=== PATIENT | male | born 1990 | race African-American/Black ===

== ENCOUNTER 2016-06-27 23:06 | Emergency (ER) | payer OTHER ==
[2016-06-28] MEDS ORDERED: PANTOPRAZOLE IV PUSH 40 MG VIAL. IVP ONE (00:55)
[2016-06-28] MEDS ORDERED: FENTANYL PF 100 MCG/2 ML VIAL. IV ONE (00:55)
[2016-06-28 01:02] LABS: BASO % 1 % (0-3); EOS % 3 % (0-3); HEMATOCRIT 44.3 % (39.0-53.0); HEMOGLOBIN 14.4 g/dL (13.0-17.5); LYMPH # 3.3 x10^3/uL (1.0-4.8); LYMPH % 55 % (24-48); MEAN CORPUSCULAR HEMOGLOBIN 26 pg (25-35); MEAN CORPUSCULAR HGB CONC 33 g/dL (31-37); MEAN CORPUSCULAR VOLUME 80 fL (79-100); MONO % 6 % (0-9); NEUT % 36 % (31-73); PLATELET COUNT 193 x10^3/uL (140-400); RED CELL DISTRIBUTION WIDTH 14.6 % (11.5-14.5)
[2016-06-28 01:15] LABS: GFR 110.2; POTASSIUM 3.6 mmol/L (3.5-5.1)
[2016-06-28 01:18] LABS: ALBUMIN 3.9 g/dL (3.4-5.0); ALBUMIN/GLOBULIN RATIO 1.1 (1.0-1.7); TOTAL PROTEIN 7.3 g/dL (6.4-8.2)
[2016-06-28] MEDS ORDERED: PANT20TA2 PO (01:38)
--- NOTE | 2016-06-28 01:38 | PHYS DOC ---
Past Medical History Past Medical History: No Pertinent History Past Surgical History: No Surgical History Alcohol Use: Occasionally Drug Use: Marijuana Adult General Chief Complaint Chief Complaint: ABDOMINAL PAIN [facility] HPI 25-year-old male who presents with exquisite epigastric and left upper quadrant pain for the last several days. He denies any blood in his stool. He states he has mild nausea but no vomiting. He denies any recent drugs or alcohol use. He states he does have history of acid reflux but is not taking any medications. He is no distress upon my evaluation. He denies any history of abdominal surgery. Review of Systems Review of Systems Constitutional: Denies fever or chills [] Eyes: Denies change in visual acuity, redness, or eye pain [] HENT: Denies nasal congestion or sore throat [] Respiratory: Denies cough or shortness of breath [] Cardiovascular: No additional information not addressed in HPI [] GI: Has abdominal pain, has nausea, denies vomiting, denies bloody stools or diarrhea [] : Denies dysuria or hematuria [] Musculoskeletal: Denies back pain or joint pain [] Integument: Denies rash or skin lesions [] Neurologic: Denies headache, focal weakness or sensory changes [] Endocrine: Denies polyuria or polydipsia [] Current Medications Current Medications Current Medications Medications (Trade) Dose Ordered Sig/[facility] Start Time Stop Time Status Last Admin Dose Admin Fentanyl Citrate (Fentanyl 2ml Vial) 50 mcg 1X ONCE 06/28/16 00:55 06/28/16 00:56 DC 06/28/16 01:11 50 MCG Pantoprazole Sodium (Protonix Vial) 40 mg 1X ONCE 06/28/16 00:55 06/28/16 00:56 DC 06/28/16 01:10 40 MG Allergies Allergies Allergies Coded Allergies Type Severity Reaction Last Updated Verified No Known Drug Allergies 06/27/16 No Physical Exam Physical Exam Constitutional: Well developed, well nourished, no acute distress, non-toxic appearance. [] HENT: Normocephalic, atraumatic, bilateral external ears normal, oropharynx moist, no oral exudates, nose normal. [] Eyes: PERRLA, EOMI, conjunctiva normal, no discharge. [] Neck: Normal range of motion, no tenderness, supple, no stridor. [] Cardiovascular:Heart rate regular rhythm, no murmur [] Lungs & Thorax: Bilateral breath sounds clear to auscultation [] Abdomen: Bowel sounds normal, soft, mild epigastric tenderness, no masses, no pulsatile masses. [] Skin: Warm, dry, no erythema, no rash. [] Back: No tenderness, no CVA tenderness. [] Extremities: No tenderness, no cyanosis, no clubbing, ROM intact, no edema. [] Neurologic: Alert and oriented X 3, normal motor function, normal sensory function, no focal deficits noted. [] Psychologic: Affect normal, judgement normal, mood normal. [] Current Patient Data Vital Signs Vital Signs Date Time Temp Pulse Resp B/P Pulse Ox O2 Delivery O2 Flow Rate FiO2 06/28/16 01:42 67 122/71 97 Room Air 06/28/16 01:11 16 06/27/16 23:45 98.1 98.1 Lab Values Laboratory Tests Test 06/28/16 00:15 White Blood Count 6.0x10^3/uL (4.0-11.0) Red Blood Count 5.50x10^6/uL (4.30-5.70) Hemoglobin 14.4g/dL (13.0-17.5) Hematocrit 44.3% (39.0-53.0) Mean Corpuscular Volume 80fL (79-100) Mean Corpuscular Hemoglobin 26pg (25-35) Mean Corpuscular Hemoglobin Concent 33g/dL (31-37) Red Cell Distribution Width 14.6% (11.5-14.5) H Platelet Count 193x10^3/uL (140-400) Neutrophils (%) (Auto) 36% (31-73) Lymphocytes (%) (Auto) 55% (24-48) H Monocytes (%) (Auto) 6% (0-9) Eosinophils (%) (Auto) 3% (0-3) Basophils (%) (Auto) 1% (0-3) Neutrophils # (Auto) 2.1x10^3uL (1.8-7.7) Lymphocytes # (Auto) 3.3x10^3/uL (1.0-4.8) Monocytes # (Auto) 0.4x10^3/uL (0.0-1.1) Eosinophils # (Auto) 0.2x10^3/uL (0.0-0.7) Basophils # (Auto) 0.0x10^3/uL (0.0-0.2) Sodium Level 140mmol/L (136-145) Potassium Level 3.6mmol/L (3.5-5.1) Chloride Level 104mmol/L (98-107) Carbon Dioxide Level 27mmol/L (21-32) Anion Gap 9 (6-14) Blood Urea Nitrogen 15mg/dL (8-26) Creatinine 1.0mg/dL (0.7-1.3) Estimated GFR (Cockcroft-Gault) 110.2 BUN/Creatinine Ratio 15 (6-20) Glucose Level 122mg/dL (70-99) H Calcium Level 9.0mg/dL (8.5-10.1) Total Bilirubin 1.0mg/dL (0.2-1.0) Aspartate Amino Transferase (AST) 22U/L (15-37) Alanine Aminotransferase (ALT) 48U/L (16-63) Alkaline Phosphatase 62U/L (46-116) Total Protein 7.3g/dL (6.4-8.2) Albumin 3.9g/dL (3.4-5.0) Albumin/Globulin Ratio 1.1 (1.0-1.7) Lipase 103U/L (73-393) Laboratory Tests 06/28/16 00:15 Laboratory Tests 06/28/16 00:15 EKG EKG [] Radiology/Procedures Radiology/Procedures [] Course & Med Decision Making Course & Med Decision Making Pertinent Labs and Imaging studies reviewed. (See chart for details) This 25-year-old male was given a dose protonic's and had a laboratory workup that was unremarkable. Symptoms are likely related to ongoing gastritis first ulceration and I counseled him that he is to follow closely. I will be putting him on a PPI course for 10 days and he will follow closely with his primary care doctor for endoscopy if his symptoms do not improve. Dragon Disclaimer Dragon Disclaimer This electronic medical record was generated, in whole or in part, using a voice recognition dictation system. Departure Departure Impression: Primary Impression: Epigastric abdominal pain Disposition: HOME, SELF-CARE Admitting Physician: Other Condition: STABLE Referrals: NO PCP (PCP) Patient Instructions: Abdominal Pain Additional Instructions: Please follow up with your primary doctor or GI doctor regarding your recent abdominal pain and be assessed for possible endoscopy. Return to the ER if you develop any worsening of your symptoms. Scripts Pantoprazole Sodium (Protonix)20 Mg Tablet.dr1 Tab PO DAILY #10 TAB Prov:TATUM WALKER DO 06/28/16 TATUM WALKER DO Jun 28, 2016 01:38
[2016-06-28 01:42] VITALS: BP 122/71
== END 2016-06-28 01:48 | disposition home or self-care (01) ==
LOC: ER 23:06
DX: R10.13 Epigastric pain (principal); R10.12 Left upper quadrant pain; K21.9 Gastro-esophageal reflux disease without esophagitis; F12.10 Cannabis abuse, uncomplicated
CPT/HCPCS: 36415; 80053; 83690; 85027; 96374; 96375; 99284; C9113; J3010

== ENCOUNTER 2017-01-21 07:52 | Emergency (ER) | payer SELFPAY ==
[~2017-01-21] VITALS: Ht 185.4 cm; Wt 90.3 kg
[~2017-01-21 07:52] MED LIST: PANT20TA2 PO
[2017-01-21 08:02] VITALS: BP 142/78
[2017-01-21] MEDS ORDERED: NAPR500T8 PO (08:18)
[2017-01-21] MEDS ORDERED: METH4TAB2 PO (08:18)
[2017-01-21] MEDS ORDERED: CYCL10TA2 PO (08:18)
--- NOTE | 2017-01-21 08:18 | PHYS DOC ---
Past Medical History Past Medical History: No Pertinent History Past Surgical History: No Surgical History Alcohol Use: Occasionally Drug Use: None, Marijuana Adult General Chief Complaint Chief Complaint: BACK PAIN OR INJURY HPI HPI Patient is a 26 year old male with no significant medical history who presents today with a sharp 8 out of 10 needed low back pain that began one and a half weeks ago. Patient is attributing his pain to lifting heavy boxes at work. Patient denies any injury. Denies the pain radiating to bilateral lower extremities. Denies any loss of bowel bladder function. He states his pain is worse when he is at work lifting boxes. Patient denies any urinary symptoms. Review of Systems Review of Systems Constitutional: Denies fever or chills [] Eyes: Denies change in visual acuity, redness, or eye pain [] HENT: Denies nasal congestion or sore throat [] Respiratory: Denies cough or shortness of breath [] Cardiovascular: No additional information not addressed in HPI [] GI: Denies abdominal pain, nausea, vomiting, bloody stools or diarrhea [] : Denies dysuria or hematuria [] Musculoskeletal: Low back pain, mid back pain Integument: Denies rash or skin lesions [] Neurologic: Denies headache, focal weakness or sensory changes [] Allergies Allergies Allergies Coded Allergies Type Severity Reaction Last Updated Verified No Known Drug Allergies 06/27/16 No Physical Exam Physical Exam Constitutional: Well developed, well nourished, no acute distress, non-toxic appearance. [] HENT: Normocephalic, atraumatic, bilateral external ears normal, oropharynx moist, no oral exudates, nose normal. [] Eyes: PERRLA, EOMI, conjunctiva normal, no discharge. [] Neck: Normal range of motion, no tenderness, supple, no stridor. [] Cardiovascular:Heart rate regular rhythm, no murmur [] Lungs & Thorax: Bilateral breath sounds clear to auscultation [] Abdomen: Bowel sounds normal, soft, no tenderness, no masses, no pulsatile masses. [] Skin: Warm, dry, no erythema, no rash. [] Back: No tenderness, no CVA tenderness. [] Extremities: Diffuse paraspinal muscle tenderness to thoracic and lumbar spine, no midline thoracic and lumbar spine tenderness, no cyanosis, no clubbing, ROM intact, no edema. [] Neurologic: Alert and oriented X 3, normal motor function, normal sensory function, no focal deficits noted. [] Psychologic: Affect normal, judgement normal, mood normal. [] Current Patient Data Vital Signs Vital Signs Date Time Temp Pulse Resp B/P (MAP) Pulse Ox O2 Delivery O2 Flow Rate FiO2 01/21/17 08:02 98.5 69 16 97 Room Air 98.5 EKG EKG [] Radiology/Procedures Radiology/Procedures [] Course & Med Decision Making Course & Med Decision Making Pertinent Labs and Imaging studies reviewed. (See chart for details) This is a 26-year-old male patient presented to the ED today with thoracic and lumbar back pain consistent with muscle strain from lifting heavy boxes. Patient discharged with Medrol Dosepak, naproxen and Flexeril. Encouraged not to lift anything heavier than 30 pounds for the next 1 week. Heat recommended to his back. Follow-up with the PCP in 1-2 weeks. Dragon Disclaimer Dragon Disclaimer This electronic medical record was generated, in whole or in part, using a voice recognition dictation system. Departure Departure Impression: Primary Impression: Acute thoracic myofascial strain Additional Impression: Acute lumbosacral myofascial strain Disposition: HOME, SELF-CARE Condition: STABLE Referrals: NO PCP (PCP) Follow-up with the primary care doctor in one week Patient Instructions: Lumbosacral Strain, Thoracic Strain, [id number] Additional Instructions: You were seen for thoracic and lumbar muscle strain. Avoid lifting anything heavier than 30 pounds for one week. You can get a heating pad and apply to the affected areas. Establish care with a primary care doctor and follow-up in the next 7 days. Scripts Cyclobenzaprine Hcl (CYCLOBENZAPRINE HCL) 10 Mg Tablet 1 TAB PO TID, #30 TAB Prov: DEVON TORRES POLITICAL REPORTER 01/21/17 Naproxen (NAPROXEN) 500 Mg Tablet.dr 1 TAB PO BID, #60 TAB 0 Refills Prov: MUTUNGADEVON POLITICAL REPORTER 01/21/17 Methylprednisolone (MEDROL) 4 Mg Tab.ds.pk 1 PKG PO UD, #1 PKG Prov: MUTUNGADEVON POLITICAL REPORTER 01/21/17 Problem Qualifiers Primary Impression: Acute thoracic myofascial strain Encounter type: initial encounter Qualified Codes: S29.019A - Strain of muscle and tendon of unspecified wall of thorax, initial encounter Additional Impression: Acute lumbosacral myofascial strain Encounter type: initial encounter Qualified Codes: S39.012A - Strain of muscle, fascia and tendon of lower back, initial encounter DEVON TORRES APRN Jan 21, 2017 08:18
== END 2017-01-21 08:31 | disposition home or self-care (01) ==
LOC: ER 07:55
DX: S39.012A Strain of muscle, fascia and tendon of lower back, initial encounter (principal); S29.012A Strain of muscle and tendon of back wall of thorax, initial encounter; X58.XXXA Exposure to other specified factors, initial encounter; Y93.89 Activity, other specified; Y92.69 Other specified industrial and construction area as the place of occurrence of the external cause; Y99.8 Other external cause status
CPT/HCPCS: 99283

== ENCOUNTER 2017-02-25 23:02 | Emergency (ER) | payer OTHER ==
[~2017-02-25 23:02] MED LIST changes: +CYCL10TA2 PO; +METH4TAB2 PO; +NAPR500T8 PO
--- NOTE | 2017-02-25 23:25 | PHYS DOC ---
Past Medical History Past Medical History: No Pertinent History Past Surgical History: No Surgical History Alcohol Use: None Drug Use: Marijuana Adult General Chief Complaint Chief Complaint: PLEURISY HPI HPI Patient is a 26 year old male who presents with sharp chest pains. Started on Thursday. Intermittent across mid chest. No shortness of air. No recent travel or illness. He does a lot of lifting at work and he works out but doesn't remember a specific injury. No cough or cold symptoms. No nausea or vomiting. No fever. Review of Systems Review of Systems Constitutional: Denies fever or chills Eyes: Denies change in visual acuity, redness, or eye pain HENT: Denies nasal congestion or sore throat Respiratory: Denies cough or shortness of breath Cardiovascular: POS sharp chest pains. GI: Denies abdominal pain, nausea, vomiting, bloody stools or diarrhea : Denies dysuria or hematuria Musculoskeletal: Denies back pain or joint pain Integument: Denies rash or skin lesions Neurologic: Denies headache, focal weakness or sensory changes All other systems were reviewed and found to be within normal limits, except as documented in this note. Family History Family History UNKNOWN Allergies Allergies Allergies Coded Allergies Type Severity Reaction Last Updated Verified No Known Drug Allergies 06/27/16 No Physical Exam Physical Exam Constitutional: Well developed, well nourished, no acute distress, non-toxic appearance. HENT: Normocephalic, atraumatic, bilateral external ears normal, oropharynx moist, no oral exudates, nose normal. Eyes: PERRLA, EOMI, conjunctiva normal, no discharge. Neck: Normal range of motion, no tenderness, supple, no stridor. Cardiovascular:Heart rate regular rhythm, no murmur Lungs & Thorax: Bilateral breath sounds clear to auscultation; no crepitance; no subcutaneous emphysema Abdomen: Bowel sounds normal, soft, no tenderness, no masses, no pulsatile masses. Skin: Warm, dry, no erythema, no rash. Back: No tenderness, no CVA tenderness. Extremities: No tenderness, no cyanosis, no clubbing, ROM intact, no edema. Neurologic: Alert and oriented X 3, normal motor function, normal sensory function, no focal deficits noted. Psychologic: Affect normal, judgement normal, mood normal. Current Patient Data Vital Signs Vital Signs Date Time Temp Pulse Resp B/P (MAP) Pulse Ox O2 Delivery O2 Flow Rate FiO2 02/25/17 23:13 98.2 62 20 149/68 (95) 97 Room Air 98.2 Lab Values Laboratory Tests Test 02/25/17 23:34 POC Troponin I 0.00 ng/ml (<0.08) EKG EKG EKG interpreted by myself at 2310 PM with NSR, rate 59, nonspecific ST changes; J point elevation. No STEMI. Radiology/Procedures Radiology/Procedures CXR interpreted by myself at 0005 am with normal mediastinum, normal cardiac silhouette, no pleural effusion. No pneumothorax. No pneumomediastinum. No infiltrates. Bony skeleton normal. Course & Med Decision Making Course & Med Decision Making Evaluated patient. Patient is low risk cardiac. I-STAT trop negative here. Will treat as musculoskeletal with referral for followup. BP slightly elevated given referral for follow up. I have spoken with the patient and/or caregivers. I have explained the patient' s condition, diagnosis and treatment plan based on the information available to me at this time. I have answered the patient's and/or caregiver's questions and addressed any concerns. The patient and/or caregivers have as good an understanding of the patient's diagnosis, condition and treatment plan as can be expected at this point. The patient's condition is stable and appropriate for discharge from the emergency department. The patient will pursue further outpatient evaluation with the primary care physician or other designated or consulting physician as outlined in the discharge instructions. The patient and/or caregivers are agreeable to this plan of care and follow-up instructions have been explained in detail. The patient and/or caregivers have received these instructions in written format and have expressed an understanding of the discharge instructions. The patient and/or caregivers are aware that any significant change in condition or worsening of symptoms should prompt an immediate return to this or the closest emergency department or a call to 911. My HEART SCORE History: Highly suspicious 2 points moderately suspicious 1. slightly suspicious 0 point EKG: ST segment depression 2. nonspecific repolarization disturbance 1. normal 0 point Age: Greater than 65 2 points, 65-45 1., less than 45 years old 0 points Risk factors:> 3 risk factors 2 points, 1-2 risk factors one point, no risk factors 0 point Troponin: > 2 times normal 2 points, 1-2 times normal 1., normal limits 0 point Total score: 2 Score % pts MACE/n MACE Policy 0-3 32% 1.9% 0.05% Discharge 4-6 51% 413/[id number] 13% 1.3% Observation Risk management 7-10 17% 518/1045 50% 2.8% Observation Treatment, CAGb PERC Criteria Assessment: Age > 50: No HR > 100: No 02 < 95%: No H/o DVT/PE: No Recent trauma/surgery: No Hemoptysis No Exogenous Estrogen: No Unilateral Leg swelling: No Pretest probability > 15%: No Less than 2% risk of PE. No further work up is necessary Dragon Disclaimer Dragon Disclaimer This electronic medical record was generated, in whole or in part, using a voice recognition dictation system. Departure Departure Impression: Primary Impression: Chest wall muscle strain Disposition: HOME, SELF-CARE Condition: GOOD Referrals: NO PCP (PCP) BRYANT SRINIVASAN MD Patient Instructions: Chest Wall Pain Additional Instructions: YOUR BLOOD PRESSURE WAS ELEVATED HERE; YOU NEED TO HAVE YOUR BLOOD PRESSURE RECHECKED. Scripts Naproxen (NAPROSYN) 500 Mg Tablet 1 TAB PO BID, #30 TAB Prov: CHAPIS WALKER MD 02/26/17 Problem Qualifiers Primary Impression: Chest wall muscle strain Encounter type: initial encounter Qualified Codes: S29.011A - Strain of muscle and tendon of front wall of thorax, initial encounter CHAPIS WALKER MD Feb 25, 2017 23:25
[2017-02-26] MEDS ORDERED: NAPR500T PO (00:13)
[2017-02-26 00:23] VITALS: BP 150/78
--- NOTE | 2017-02-26 07:46 | RAD ---
Single view chest History:sharp mid chest pains An AP view of the chest is submitted. Comparison: None. Findings: There is no significant infiltrate, pleural effusion, or pneumothorax. The pericardial cardiac silhouette is within normal limits in size. The trachea is in the midline. No acute osseous abnormality is identified. Impression: There is no evidence of acute cardiopulmonary disease.
--- NOTE | 2017-02-26 11:38 | EKG ---
[facility] [address] [place] [address] Test Date: 2017-02-25 Test Time: 23:10:45 Pat Name: SAÚL TAYLORDepartment: Room: Gender: M Bilingual Teacher: : 1990 Requested By: CHAPIS WALKER Order Number: [id number] Reading MD: Measurements Intervals [place] Rate: 59 P: 0 WI: 134 QRS: 54 QRSD: 86 T: 18 QT: 358 QTc: 358 Interpretive Statements SINUS RHYTHM QRS(T) CONTOUR ABNORMALITY CONSIDER INFERIOR MYOCARDIAL DAMAGE POSSIBLY ABNORMAL ECG RI6.01 No previous ECG available for comparison
== END 2017-02-26 00:24 | disposition home or self-care (01) ==
LOC: ER 23:02
DX: S29.011A Strain of muscle and tendon of front wall of thorax, initial encounter (principal); F12.10 Cannabis abuse, uncomplicated; X58.XXXA Exposure to other specified factors, initial encounter; Y93.89 Activity, other specified; Y92.69 Other specified industrial and construction area as the place of occurrence of the external cause; Y99.8 Other external cause status
CPT/HCPCS: 71010; 84484; 93005; 99284-25

== ENCOUNTER 2017-03-17 20:13 | Emergency (ER) | payer OTHER ==
[~2017-03-17] VITALS: Ht 185.4 cm; Wt 97.1 kg
[~2017-03-17 20:13] MED LIST changes: +NAPR-683 PO
[2017-03-17 20:27] VITALS: BP 139/72
[2017-03-17] MEDS ORDERED: ALBUTEROL SULFATE 2.5 MG/3 ML NEBU. NEB ONE (20:45)
--- NOTE | 2017-03-17 20:57 | PHYS DOC ---
Past Medical History Past Medical History: No Pertinent History Past Surgical History: No Surgical History Alcohol Use: Occasionally Drug Use: Marijuana Adult General Chief Complaint Chief Complaint: Congestion HPI HPI Patient is a 26 year old male who presents with cough and congestion 2 days. Patient says that his symptoms started with a sore throat which then progressed into nasal congestion and has gone down into his chest today. He is coughing and feeling slightly short of air. He denies fever but says that he does have chills, he denies earaches, nausea or vomiting. Review of Systems Review of Systems Constitutional: Denies fever or chills [] Eyes: Denies change in visual acuity, redness, or eye pain [] HENT: See history of present illness Respiratory: See history of present illness Cardiovascular: No additional information not addressed in HPI [] GI: Denies abdominal pain, nausea, vomiting, bloody stools or diarrhea [] : Denies dysuria or hematuria [] Musculoskeletal: Denies back pain or joint pain [] Integument: Denies rash or skin lesions [] Neurologic: Denies headache, focal weakness or sensory changes [] Endocrine: Denies polyuria or polydipsia [] All other systems were reviewed and found to be within normal limits, except as documented in this note. Current Medications Current Medications Current Medications Medications (Trade) Dose Ordered Sig/Jen Start Time Stop Time Status Last Admin Dose Admin Albuterol Sulfate (Ventolin Neb Soln) 2.5 mg 1X ONCE 03/17/17 20:45 03/17/17 20:46 DC 03/17/17 20:45 2.5 MG Allergies Allergies Allergies Coded Allergies Type Severity Reaction Last Updated Verified No Known Drug Allergies 06/27/16 No Physical Exam Physical Exam Constitutional: Well developed, well nourished, no acute distress, non-toxic appearance. [] HENT: Normocephalic, atraumatic, bilateral external ears normal, oropharynx moist, bilateral nares are erythematous with clear drainage Eyes: PERRLA, EOMI, conjunctiva normal, no discharge. [] Neck: Normal range of motion, no tenderness, supple, no stridor. [] Cardiovascular:Heart rate regular rhythm, no murmur [] Lungs & Thorax: Bilateral wheezing to the bases with diminished breath sounds Abdomen: Bowel sounds normal, soft, no tenderness, no masses, no pulsatile masses. [] Skin: Warm, dry, no erythema, no rash. [] Neurologic: Alert and oriented X 3, normal motor function, normal sensory function, no focal deficits noted. [] Psychologic: Affect normal, judgement normal, mood normal. [] Current Patient Data Vital Signs Vital Signs Date Time Temp Pulse Resp B/P (MAP) Pulse Ox O2 Delivery O2 Flow Rate FiO2 03/17/17 20:43 98 Room Air 03/17/17 20:27 98.7 77 18 98.7 EKG EKG [] Radiology/Procedures Radiology/Procedures [] Impressions: Following demonstration of 2.5 mg of albuterol in the emergency department the patient's wheezing is resolving and he states that he is able to breathe easily. Course & Med Decision Making Course & Med Decision Making Pertinent Labs and Imaging studies reviewed. (See chart for details) []1. Upper respiratory infection 2. Cough with wheezing You've been diagnosed with a respiratory infection. Please use all medications as prescribed. You were given a prescription for an antibiotic that you might defer taking for a few days to see if you do improve. If you're cough worsens or you start to improve and then declined please begin the antibiotic. Please use the albuterol inhaler as we discussed. Return to the ED if worsening or follow-up your primary care provider as needed. Leroy Disclaimer Leroy Disclaimer This electronic medical record was generated, in whole or in part, using a voice recognition dictation system. Departure Departure Referrals: NO PCP (PCP) BUTCH LUCIO APRN Mar 17, 2017 20:56
[2017-03-17] MEDS ORDERED: PROAIR HFA8.5 GM INH (20:59)
[2017-03-17] MEDS ORDERED: AZIT250T PO (20:59)
== END 2017-03-17 21:10 | disposition home or self-care (01) ==
LOC: ER 20:13
DX: J06.9 Acute upper respiratory infection, unspecified (principal); R05 Cough; R06.2 Wheezing; F12.10 Cannabis abuse, uncomplicated
CPT/HCPCS: 94640; 99283; J7613

== ENCOUNTER 2017-07-08 06:57 | Emergency (ER) | payer OTHER | END 2017-07-08 07:30 | disposition home or self-care (01) | LOC: ER 06:57 | DX: S39.012A Strain of muscle, fascia and tendon of lower back, initial encounter (principal); F12.10 Cannabis abuse, uncomplicated; X50.9XXA Other and unspecified overexertion or strenuous movements or postures, initial encounter; Y93.89 Activity, other specified; Y99.8 Other external cause status; Y92.89 Other specified places as the place of occurrence of the external cause | CPT/HCPCS: 99283 ==

== ENCOUNTER 2017-11-22 17:07 | Emergency (ER) | payer OTHER ==
[~2017-11-22] VITALS: Ht 185.4 cm; Wt 96.2 kg
[~2017-11-22 17:07] MED LIST changes: +AZIT250T PO; +IBUP-1060 PO; +PROAIR HFA8.5 GM INH; +TRAM50TA PO
[2017-11-22 17:18] VITALS: BP 144/94
[2017-11-22] MEDS ORDERED: AMOX500C PO (17:21)
[2017-11-22] MEDS ORDERED: HYDR-971 PO (17:21)
--- NOTE | 2017-11-22 17:22 | PHYS DOC ---
Past Medical History Past Medical History: No Pertinent History Past Surgical History: No Surgical History Alcohol Use: Occasionally Drug Use: Marijuana Adult General Chief Complaint Chief Complaint: DENTAL PROBLEM HPI HPI Patient is a 27 year old male presents to the ED complaining of dental pain 5 days. Patient states he has a right upper molar tooth with a hole in it for the past 5 months. States the past 5 days has been getting a lot worse. Describes the pain as sharp. Rates the pain as 10 out of 10. Pain with chewing. Denies difficulty swallowing, lip swelling, tongue swelling, shortness of breath, chest pain, fever, nausea/vomiting or headache. Review of Systems Review of Systems Constitutional: Denies fever or chills [] Eyes: Denies change in visual acuity, redness, or eye pain [] HENT: Complains of dental pain. Denies nasal congestion or sore throat [] Respiratory: Denies cough or shortness of breath [] Cardiovascular: No additional information not addressed in HPI [] GI: Denies abdominal pain, nausea, vomiting, bloody stools or diarrhea [] : Denies dysuria or hematuria [] Musculoskeletal: Denies back pain or joint pain [] Integument: Denies rash or skin lesions [] Neurologic: Denies headache, focal weakness or sensory changes [] All other systems were reviewed and found to be within normal limits, except as documented in this note. Allergies Allergies Allergies Coded Allergies Type Severity Reaction Last Updated Verified No Known Drug Allergies 06/27/16 No Physical Exam Physical Exam Constitutional: Well developed, well nourished, no acute distress, non-toxic appearance. [] HENT: Normocephalic, atraumatic, bilateral external ears normal, oropharynx moist, no oral exudates, nose normal. right upper molar dental caries, poor dentition throughout. no abscess or fluctuance.[] Neck: Normal range of motion, no tenderness, supple, no stridor. [] Cardiovascular:Heart rate regular rhythm, no murmur [] Lungs & Thorax: Bilateral breath sounds clear to auscultation [] Skin: Warm, dry, no erythema, no rash. [] Neurologic: Alert and oriented X 3, normal motor function, normal sensory function, no focal deficits noted. [] Psychologic: Affect normal, judgement normal, mood normal. [] EKG EKG [] Radiology/Procedures Radiology/Procedures [] Course & Med Decision Making Course & Med Decision Making Pertinent Labs and Imaging studies reviewed. (See chart for details) Patient's pain improved in the ED. Will discharge with antibiotics and analgesics. Discussed symptomatic treatment outpatient. Discussed follow-up with dentist this coming week. Provided contact information/education and community resource list for dental clinic handout. Discussed reasons to return to the ED. Patient understands and agrees with plan. Dragon Disclaimer Dragon Disclaimer This electronic medical record was generated, in whole or in part, using a voice recognition dictation system. Departure Departure Impression: Primary Impression: Dental caries Additional Impression: Pain, dental Disposition: HOME, SELF-CARE Condition: IMPROVED Referrals: NO PCP (PCP) JOSE JUAN VAZQUEZ DDS Patient Instructions: Dental Caries, Dental Pain Scripts Hydrocodone/Apap 5-325 (NORCO 5-325 TABLET) 1 Each Tablet 1 TAB PO BID for 3 Days, #6 TAB Prov: FAWN VALENCIA 11/22/17 Amoxicillin (AMOXICILLIN) 500 Mg Capsule 1 CAP PO TID for 10 Days, #30 CAP Prov: FAWN VALENCIA 11/22/17 Problem Qualifiers FAWN VALENCIA Nov 22, 2017 17:22
[2017-11-22] MEDS ORDERED: HYDROcodone/APAP 5/325MG 1 TAB TABLET PO ONE (17:30)
== END 2017-11-22 17:40 | disposition home or self-care (01) ==
LOC: ER 17:07
DX: K02.9 Dental caries, unspecified (principal); K08.89 Other specified disorders of teeth and supporting structures
CPT/HCPCS: 99283